=== PATIENT | male | born 1975 | race Caucasian/White ===

== ENCOUNTER 2017-03-05 11:30 | Emergency (ER) | payer OTHER ==
[~2017-03-05] VITALS: Ht 185.4 cm; Wt 85.1 kg
[2017-03-05 11:34] VITALS: TEMP 36.4
[2017-03-05] MEDS ORDERED: SODIUM CHLORIDE 0.9% 1000ML 1,000 ML IV STA (11:45)
[2017-03-05] MEDS ORDERED: SODIUM CHLORIDE 0.9% 1000ML 1,000 ML IV SCH (11:45)
--- NOTE | 2017-03-05 11:55 | EMERGENCY ROOM VISIT NOTE ---
History Report prepared by Ivan: German Oshea Under the Supervision of: Dr. Antonio Sinha M.D. First contact with patient: 11:39 Chief Complaint: STROKE SYMPTOMS Stated Complaint: STOKE SYMPTOMS,LOST FUNCTION ON R SIDE History of Present Illness The patient is a 41 year old male who presents to the Emergency Room with his friend for stroke-like symptoms. The patient's friend notes that he went to visit with the patient at 1100, 30 minutes ago and noticed that he was not behaving appropriately. He was standing in the kitchen, and was not responding correctly. He was shuffling his feet to walk, and holding his right arm in an unusual position. Upon presentation to the ED the patient is exhibiting expressive aphasia, and has weakness on the right side. The patient is unable to express the last time he felt normal. The friend has not seen him recently until this morning. After acquiring more HPI it was decided that the patient was last known well this morning at 0937, roughly two hours before arrival to the hospital. This was based on patient's who is [id number] at this time confirming that the patient sent her text messages this morning exhibiting ability to read and respond to written text normally. Source of History: patient Onset: Unknown last time known well Position: other (Neuro) Quality: other (Stoke Sx) Note: Facial droop, aphasia Review of Systems See HPI for pertinent positives and negatives. A total of ten systems were reviewed and were otherwise negative. Past Medical & Surgical Medical Problems: (1) Chronic back pain Chronic back pain Social History Alcohol Use: none Marital Status: Housing Status: lives with family Physical Exam Vital Signs Date Time Temp Pulse Resp B/P (MAP) Pulse Ox O2 Delivery O2 Flow Rate FiO2 03/05/17 13:50 77 18 149/95 99 Room Air 03/05/17 13:35 66 16 153/93 99 Room Air 03/05/17 13:20 70 20 153/95 99 Room Air 03/05/17 13:05 69 13 160/95 99 Room Air 03/05/17 12:50 58 13 149/92 97 03/05/17 12:45 64 14 150/101 99 03/05/17 12:40 67 13 97 03/05/17 12:38 164/90 03/05/17 12:35 61 22 99 03/05/17 12:30 58 15 98 03/05/17 12:25 65 18 98 03/05/17 12:20 79 19 98 03/05/17 12:15 67 14 99 03/05/17 12:14 70 03/05/17 12:10 69 20 153/89 98 Room Air 03/05/17 12:09 99 Room Air 03/05/17 12:07 153/89 03/05/17 11:34 36.4 78 18 142/99 99 Room Air Physical Exam GENERAL: Awake, alert, well-appearing, in no distress. There is expressive aphasia and dysarthria. HENT: There is a right lower facial weakness. Normocephalic, atraumatic. Oropharynx unremarkable. EYES: Normal conjunctiva. Sclera non-icteric. NECK: Supple. No nuchal rigidity. FROM. No JVD. RESPIRATORY: Clear to auscultation. CARDIAC: Regular rate, normal rhythm. Extremities warm and well perfused. Pulses equal. ABDOMEN: Soft, non-distended. No tenderness to palpation. No rebound or guarding. No masses. RECTAL: Deferred. UPPER EXTREMITIES: There is drift present in the right upper extremity. MUSCULOSKELETAL: Chest examination reveals no tenderness. The back is symmetrical on inspection without obvious abnormality. There is no CVA tenderness to palpation. No joint edema. LOWER EXTREMITIES: There is 4/5 strength in the Right lower extremity. Calves are equal size bilaterally and non-tender. No edema. No discoloration. NEURO: Normal sensorium. No sensory or motor deficits noted. SKIN: No rash or jaundice noted. NIH Stroke scale of 8. Medical Decision & Procedures ER Provider Diagnostic Interpretation: Radiology results as stated below per my review and radiologist interpretation: CTA ANGIOGRAPHY OF THE HEAD CLINICAL HISTORY: Stroke. COMPARISON STUDY: No previous studies for comparison. TECHNIQUE: Helical axial images of the head were obtained following uneventful intravenous administration of 93 cc of Optiray 320. A dose lowering technique was utilized adhering to the principles of ALARA. FINDINGS: Note is made of abrupt occlusion of a branch of the left anterior cerebral artery shown best on axial image 510 of 626. There is also suspected abrupt occlusion of a small left anterior branch shown on axial image 480 706 126. There is no large central thrombus. Posterior circulation appears intact. No acute intracranial hemorrhage, midline shift or mass effect is present. No intracranial aneurysm or dissection is identified. An anterior communicating artery is present. IMPRESSION: 1. Abrupt occlusion of a branch of the left anterior cerebral artery likely due to thrombus, as shown on unenhanced head CT. Findings discussed with Dr. Sinha at time of dictation. 2. Possible abrupt occlusion of a small sylvian branch of the left middle cerebral artery. Electronically signed by: Matt Santana M.D. 03/05/2017 12:26 PM Dictated Date/Time: 03/05/2017 12:[address] ANGIOGRAPHY OF THE NECK WITH CONTRAST CLINICAL HISTORY: Stroke symptoms. COMPARISON STUDY: No previous studies for comparison. Technique: CT angiography of the carotid and vertebral arteries was obtained using [employer] 320 IV and 3D reconstruction on an independent workstation. NASCET criteria was utilized. A dose lowering technique was utilized adhering to the principles of ALARA. CT DOSE: 1210.07 mGy.cm Findings: Lung apices are clear. There is no cervical lymphadenopathy. No suspicious osseous lesions are present. There is no significant stenosis within the bilateral internal carotid, common carotid or vertebral arteries. There is no dissection within the major vasculature of the neck. IMPRESSION: No abnormality in carotid and vertebral vessels on contrast enhanced CT angiogram. Electronically signed by: Matt Santana M.D. 03/05/2017 12:18 PM Dictated Date/Time: 03/05/2017 12:11 PM CHEST ONE VIEW PORTABLE CLINICAL HISTORY: Stroke COMPARISON STUDY: No previous studies for comparison. FINDINGS: Lung volumes are normal. Lungs are clear. No pneumothorax or pleural effusion is noted. Cardiac size is normal. Mediastinal contours are normal. There is no evidence of pulmonary edema. IMPRESSION: No acute cardiopulmonary findings. Electronically signed by: Matt Santana M.D. 03/05/2017 12:18 PM Dictated Date/Time: 03/05/2017 12:[address] OF THE HEAD WITHOUT CONTRAST CLINICAL HISTORY: Stroke symptoms. Lost function on right side. COMPARISON STUDY: No previous studies for comparison. TECHNIQUE: Helical axial images of the head were obtained without IV contrast. Automated exposure control was utilized for the study. A dose lowering technique was utilized adhering to the principles of ALARA. FINDINGS: No acute intracranial hemorrhage, midline shift or mass effect is present. Ventricular system is normal. Basilar cisterns are patent. There are no extra-axial collections. There is linear hyperdensity within a suspected branch of the left anterior cerebral artery shown best on axial image 17 of 32. There are no significant calvarial abnormalities. Visualized portions of the sinuses and mastoid air cells are clear. IMPRESSION: 1. No acute intracranial hemorrhage or mass effect. 2. Linear hyperdensity within a suspected branch of the left anterior cerebral artery which may reflect thrombus given the clinical history. This could be correlated with clinical evidence for an acute infarct within the left anterior cerebral artery distribution. Electronically signed by: Matt Santana M.D. 03/05/2017 12:11 PM Dictated Date/Time: 03/05/2017 12:03 PM Laboratory Results 03/05/17 11:42 Red Blood Count 5.05, Mean Corpuscular Volume 94.5, Mean Corpuscular Hemoglobin 33.3, Mean Corpuscular Hemoglobin Concent 35.2, Mean Platelet Volume 10.1, Neutrophils (%) (Auto) 78.5, Lymphocytes (%) (Auto) 14.1, Monocytes (%) (Auto) 5.8, Eosinophils (%) (Auto) 1.0, Basophils (%) (Auto) 0.3, Neutrophils # (Auto) 6.00, Lymphocytes # (Auto) 1.08, Monocytes # (Auto) 0.44, Eosinophils # (Auto) 0.08, Basophils # (Auto) 0.02 03/05/17 11:42 Test 03/05/17 11:42 03/05/17 11:44 03/05/17 11:45 03/05/17 12:18 White Blood Count 7.64 K/uL (4.8-10.8) Red Blood Count 5.05 M/uL (4.7-6.1) Hemoglobin 16.8 g/dL (14.0-18.0) Hematocrit 47.7 % (42-52) Mean Corpuscular Volume 94.5 fL (80-100) Mean Corpuscular Hemoglobin 33.3 pg (25-34) Mean Corpuscular Hemoglobin Concent 35.2 g/dl (32-36) Platelet Count 245 K/uL (130-400) Mean Platelet Volume 10.1 fL (7.4-10.4) Neutrophils (%) (Auto) 78.5 % Lymphocytes (%) (Auto) 14.1 % Monocytes (%) (Auto) 5.8 % Eosinophils (%) (Auto) 1.0 % Basophils (%) (Auto) 0.3 % Neutrophils # (Auto) 6.00 K/uL (1.4-6.5) Lymphocytes # (Auto) 1.08 K/uL (1.2-3.4) Monocytes # (Auto) 0.44 K/uL (0.11-0.59) Eosinophils # (Auto) 0.08 K/uL (0-0.5) Basophils # (Auto) 0.02 K/uL (0-0.2) RDW Standard Deviation 42.4 fL (36.4-46.3) RDW Coefficient of Variation 12.4 % (11.5-14.5) Immature Granulocyte % (Auto) 0.3 % Immature Granulocyte # (Auto) 0.02 K/uL (0.00-0.02) Prothrombin Time 10.9 SECONDS (9.0-12.0) Prothromb Time International Ratio 1.0 (0.9-1.1) Activated Partial Thromboplast Time 25.2 SECONDS (21.0-31.0) Partial Thromboplastin Ratio 1.0 Est Creatinine Clear Calc Drug Dose 100.0 ml/min Estimated GFR () 95.8 Estimated GFR (Non- 82.6 BUN/Creatinine Ratio 11.9 (10-20) Calcium Level 9.6 mg/dl (8.5-10.1) Magnesium Level 2.1 mg/dl (1.8-2.4) Total Creatine Kinase 221 U/L (39-308) Creatine Kinase MB 3.6 ng/ml (0.5-3.6) Creatine Kinase MB Ratio 1.6 (0-3.0) Troponin I < 0.015 ng/ml (0-0.045) Bedside Glucose 93 mg/dl (70-99) Bedside Hemoglobin 17.0 g/dl (14.0-18.0) Bedside Hematocrit 50 % (42-52) Bedside Sodium 143 mEq/L (135-144) Bedside Potassium 4.1 mEq/L (3.3-5.0) Bedside Chloride 101 mEq/L (101-112) Bedside Total CO2 29 mEq/l (24-31) Anion Gap 18.0 mmol/L (16-25) Bedside Blood Urea Nitrogen 15 mg/dl (7-18) Bedside Creatinine 1.1 mg/dl (0.6-1.3) Bedside Glucose (other) 105 mg/dl (70-99) Bedside Ionized Calcium (Caitlyn) 1.15 mmol/l (1.12-1.32) Bedside Prothrombin Time INR 1.1 (0.9-1.1) Laboratory results reviewed by me Medications Administered Medications (Trade) Dose Ordered Sig/Erica Route Start Time Stop Time Status Last Admin Dose Admin Sodium Chloride 1,000 ml @ 50 mls/hr Q20H IV 03/05/17 11:45 03/05/17 14:19 DC 03/05/17 11:45 50 MLS/HR Sodium Chloride 1,000 ml @ 999 mls/hr Q1H1M STAT IV 03/05/17 11:45 03/05/17 12:45 DC 03/05/17 12:23 999 MLS/HR Alteplase, Recombinant 68.4 mg/Empty Bag 68.4 ml @ 68.4 mls/hr TODAY@1230 IV 03/05/17 12:30 03/05/17 13:29 DC 03/05/17 12:40 68.4 MLS/HR Alteplase, Recombinant 7.6 mg/Syringe 7.6 ml @ 7.6 mls/min TODAY@1230 IV 03/05/17 12:30 03/05/17 12:31 DC 03/05/17 12:40 7.6 MLS/MIN ECG Indication: altered mental status (stroke) Rate (beats per minute): 54 Rhythm: sinus bradycardia Findings: RBBB (incomplete), no acute ischemic change Change: Patient's electrocardiogram interpreted by me. ED Course 1139: The patient was evaluated in room B1. A complete history and physical exam was performed. 1145: Ordered Sodium Chloride 1000 mL @ 999 mL/hr IV, Sodium Chloride 1000 mL @ 50 mL/hr IV. 1217: I Discussed the case with Dr. Germain - [facility]. He agrees with administering TPA. TPA will be mixed and given. 1230: Alteplase, Recombinant 7.6 mg 7.6 mL @ 7.6 mL/min IV. 1231: Consult was made with Hanna as we are trying to get the Telestroke program to operate. 1321: I discussed the case with Dr. Germain again. He states we should transfer the patient to the [facility] Emergency Department. We do not need to speak with an ED physician. Medical Decision I reviewed the patient's past medical history, medications, and the nursing notes as described above. Differential diagnosis: Etiologies such as cerebral vascular accident, intracerebral event, metabolic, infection, hypo/hyperglycemia, electrolyte abnormalities, cardiac sources, toxicologic, neurologic, as well as others were entertained. The patient is a 41-year-old gentleman who presents emergency Department with stroke symptoms including dysarthria and expressive aphasia right sided weakness of the lower face, right upper extremity weakness and right lower extremity weakness initially with unclear last known well given the limitations in communication secondary to the patient's aphasia. The patient was found by a friend this morning who noticed the patient's altered status and brought the patient in for evaluation. On arrival the patient has clear dysarthria and aphasia unable to answer questions. He has right kenia-facial paresis of the lower face. He has right upper extremity pronator drift and 4/5 strength in the right lower extremity. NIH Stroke Scale of 8. Stroke alert activated. CT head negative for bleed. CTA of the head and neck demonstrates left ZAINA thrombus as well as a likely occlusion of small sylvian branch of left MCA. In the interim, additional collateral was obtained and the patient was apparently texting with his normally at approximately 937 this morning. Moreover, when patient is reading text he is able to point to a written option that indicates he woke up normal this morning. Thus, the time of 9:37 AM used as the LKW. Case was discussed with Dr. Germain, [facility] neurologist, who determined no contraindications for tpa. Given the patient's elevated NIH score in the setting of confirmed thrombus on CT patient meets criteria for TPA and thus was administered with patient consent. Subsequently, the patient demonstrated improvement in his speech able to answer most questions with mild dysarthria and aphasia. I discussed further with and we agree for plan for transfer by air to the ED as telestroke transfer with plan for possible Neuro IR evaluation.. Patient and family consenting for transfer. Consults Time Called: 1210 Consulting Physician: Dr. Jessa Ferreira Neurology Returned Call: 1217 I Discussed the case with Dr. Jessa Ferreira Neurology. He agrees with administering TPA. TPA will be mixed and given. Impression Primary Impression: Stroke Critical Care I have personally spent greater than 120 minutes of critical care time in the direct management of this patient. This includes bedside care, interpretation of diagnostic studies, and testing, discussion with consultants, patient, and family members, and other required patient management activities. This 120 minutes is in excess of all separately billable procedures. Scribe Attestation The scribe's documentation has been prepared under my direction and personally reviewed by me in its entirety. I confirm that the note above accurately reflects all work, treatment, procedures, and medical decision making performed by me. Departure Information Dispostion Transfer Acute Care Facility ([facility] ED) Referrals No Doctor, Assigned (PCP) Patient Instructions My [facility] Stroke History Time Last Known Well 09 this morning Stroke t-PA Criteria Reviewed Meets criteria for t-PA Reason t-PA Not Given Treatment provided - N/A
[2017-03-05 11:56] LABS: BASO % 0.3 %; BASO ABS # 0.02 K/uL (0-0.2); EOS ABS # 0.08 K/uL (0-0.5); HEMATOCRIT 47.7 % (42-52); HEMOGLOBIN 16.8 g/dL (14.0-18.0); IG# 0.02 K/uL (0.00-0.02); LYMPH % 14.1 %; LYMPH ABS # 1.08 K/uL (1.2-3.4); MEAN CELL VOLUME 94.5 fL (80-100); MEAN CORPUSCULAR HEMOGLOBIN 33.3 pg (25-34); MEAN CORPUSCULAR HGB CONC 35.2 g/dl (32-36); MEAN PLATELET VOLUME 10.1 fL (7.4-10.4); MONO % 5.8 %; MONO ABS # 0.44 K/uL (0.11-0.59); NEUT % 78.5 %; PLATELET COUNT 245 K/uL (130-400); RED CELL DISTRIBUTION WIDTH CV 12.4 % (11.5-14.5); RED CELL DISTRIBUTION WIDTH SD 42.4 fL (36.4-46.3); WHITE BLOOD COUNT 7.64 K/uL (4.8-10.8)
[2017-03-05 11:57] LABS: ISTAT CREATININE 1.1 mg/dl (0.6-1.3); ISTAT IONIZED CALCIUM 1.15 mmol/l (1.12-1.32); ISTAT POTASSIUM 4.1 mEq/L (3.3-5.0)
[2017-03-05 12:06] LABS: PTT PATIENT 25.2 SECONDS (21.0-31.0)
[2017-03-05 12:08] VITALS: Ht 185.4 cm; Wt 85.1 kg
[2017-03-05 12:09] VITALS: O2SAT 99
[2017-03-05 12:12] LABS: BLOOD UREA NITROGEN 13 mg/dl (7-18); CALCIUM 9.6 mg/dl (8.5-10.1); CARBON DIOXIDE 27 mmol/L (21-32); CREATININE 1.11 mg/dl (0.60-1.40); GLUCOSE 103 mg/dl (70-99); POTASSIUM 4.1 mmol/L (3.5-5.1); SODIUM 139 mmol/L (136-145)
--- NOTE | 2017-03-05 12:12 | DIAGNOSTIC IMAGING REPORT ---
CT OF THE HEAD WITHOUT CONTRAST CLINICAL HISTORY: Stroke symptoms. Lost function on right side. COMPARISON STUDY: No previous studies for comparison. TECHNIQUE: Helical axial images of the head were obtained without IV contrast. Automated exposure control was utilized for the study. A dose lowering technique was utilized adhering to the principles of ALARA. FINDINGS: No acute intracranial hemorrhage, midline shift or mass effect is present. Ventricular system is normal. Basilar cisterns are patent. There are no extra-axial collections. There is linear hyperdensity within a suspected branch of the left anterior cerebral artery shown best on axial image 17 of 32. There are no significant calvarial abnormalities. Visualized portions of the sinuses and mastoid air cells are clear. IMPRESSION: 1. No acute intracranial hemorrhage or mass effect. 2. Linear hyperdensity within a suspected branch of the left anterior cerebral artery which may reflect thrombus given the clinical history. This could be correlated with clinical evidence for an acute infarct within the left anterior cerebral artery distribution. Electronically signed by: Matt Santana M.D. 03/05/2017 12:11 PM Dictated Date/Time: 03/05/2017 12:03 PM
[2017-03-05] MEDS ORDERED: OPTIRAY 320 IV PRN (12:15)
[2017-03-05 12:17] LABS: CKMB 3.6 ng/ml (0.5-3.6)
--- NOTE | 2017-03-05 12:19 | DIAGNOSTIC IMAGING REPORT ---
CT ANGIOGRAPHY OF THE NECK WITH CONTRAST CLINICAL HISTORY: Stroke symptoms. COMPARISON STUDY: No previous studies for comparison. Technique: CT angiography of the carotid and vertebral arteries was obtained using [employer] 320 IV and 3D reconstruction on an independent workstation. NASCET criteria was utilized. A dose lowering technique was utilized adhering to the principles of ALARA. CT DOSE: 1210.07 mGy.cm Findings: Lung apices are clear. There is no cervical lymphadenopathy. No suspicious osseous lesions are present. There is no significant stenosis within the bilateral internal carotid, common carotid or vertebral arteries. There is no dissection within the major vasculature of the neck. IMPRESSION: No abnormality in carotid and vertebral vessels on contrast enhanced CT angiogram. Electronically signed by: Matt Santana M.D. 03/05/2017 12:18 PM Dictated Date/Time: 03/05/2017 12:11 PM
--- NOTE | 2017-03-05 12:20 | DIAGNOSTIC IMAGING REPORT ---
CHEST ONE VIEW PORTABLE CLINICAL HISTORY: Stroke COMPARISON STUDY: No previous studies for comparison. FINDINGS: Lung volumes are normal. Lungs are clear. No pneumothorax or pleural effusion is noted. Cardiac size is normal. Mediastinal contours are normal. There is no evidence of pulmonary edema. IMPRESSION: No acute cardiopulmonary findings. Electronically signed by: Matt Santana M.D. 03/05/2017 12:18 PM Dictated Date/Time: 03/05/2017 12:18 PM
[2017-03-05] MEDS ORDERED: RECOMBINANT IV STA ×2 (12:23)
[2017-03-05] MEDS ORDERED: ALTEPLASE IV STA ×2 (12:23)
--- NOTE | 2017-03-05 12:27 | DIAGNOSTIC IMAGING REPORT ---
CTA ANGIOGRAPHY OF THE HEAD CLINICAL HISTORY: Stroke. COMPARISON STUDY: No previous studies for comparison. TECHNIQUE: Helical axial images of the head were obtained following uneventful intravenous administration of 93 cc of Optiray 320. A dose lowering technique was utilized adhering to the principles of ALARA. FINDINGS: Note is made of abrupt occlusion of a branch of the left anterior cerebral artery shown best on axial image 510 of 626. There is also suspected abrupt occlusion of a small left anterior branch shown on axial image 480 706 126. There is no large central thrombus. Posterior circulation appears intact. No acute intracranial hemorrhage, midline shift or mass effect is present. No intracranial aneurysm or dissection is identified. An anterior communicating artery is present. IMPRESSION: 1. Abrupt occlusion of a branch of the left anterior cerebral artery likely due to thrombus, as shown on unenhanced head CT. Findings discussed with Dr. Sinha at time of dictation. 2. Possible abrupt occlusion of a small sylvian branch of the left middle cerebral artery. Electronically signed by: Matt Santana M.D. 03/05/2017 12:26 PM Dictated Date/Time: 03/05/2017 12:18 PM
[2017-03-05] MEDS ORDERED: SET 2260-0500 IV ONE (12:30)
[2017-03-05] MEDS ORDERED: RECOMBINANT IV SCH ×2 (12:30)
[2017-03-05] MEDS ORDERED: ALTEPLASE IV SCH ×2 (12:30)
[2017-03-05] MEDS ORDERED: PHARMACIST DISCHARGE MED REC CONSULT PRN (12:30)
[2017-03-05 13:50] VITALS: BP 149/95; PULSE 77; O2SAT 99
== END 2017-03-05 14:00 | disposition short-term general hospital (02) ==
LOC: C.EDB 11:32
DX: I63.322 Cerebral infarction due to thrombosis of left anterior cerebral artery (principal); R29.708 NIHSS score 8; M54.9 Dorsalgia, unspecified; G89.29 Other chronic pain; R47.1 Dysarthria and anarthria; R00.1 Bradycardia, unspecified; I45.10 Unspecified right bundle-branch block

== ENCOUNTER → 2017-05-05 | Day surgery (SDC) | payer OTHER ==
[2017-05-05] VITALS (7 sets, daily range): BP systolic 84–150; BP diastolic 63–90; PULSE 52–75; O2SAT 95–100; Ht 190.5 cm; Wt 85.0 kg
[~2017-05-05] VITALS: Ht 190.5 cm; Wt 85.0 kg
[~2017-05-05] MED LIST: ASPI81TA28 PO; CITA10TA4 PO; CYAN10005 PO; FOLI1TAB8 PO; GABA-113 PO; LIDOCAINE HCL 2% 2 ML VIAL (20MG/ML) ONE; PROPOFOL IV EMULSION 10 MG/ML 20 ML VIAL IV ONE
--- NOTE | 2017-05-05 08:03 | Cardiology Procedure Brief Nt ---
Preliminary Cardiology Note Procedure Date May 05, 2017. 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
--- NOTE | 2017-05-05 08:06 | Discharge Instructions ---
Discharge Instructions Procedure Procedure Date: May 05, 2017. Reason for Visit: PFO. Discharge Discharge Date: May 05, 2017. Discharge Diagnosis: Small PFO with hypermobile Intraatrial septum Last Recorded Wt (Kilograms): 85 Anesthesia Post Anesthesia Instructions: If you have had IV Sedation: * Do not drive today. * Do not make important decisions or sign legal documents today. * Call surgeon for: 1. Temperature elevations greater than 101 degrees F. 2. Uncontrollable pain. 3. Excessive bleeding. 4. Persistent nausea and vomiting. * For nausea and vomiting use only clear liquids such as: tea, soda, bouillon until nausea subsides, then gradually increase diet as tolerated. * If you have any concerns or questions, call your physician's office. If physician is unavailable and it is an emergency, call 911 or go to the nearest emergency room. Instructions Activity Recommendations: limitations Recommended Home Diet: resume previous diet Follow Up ACTIVITY RECOMMENDATIONS: Resume activities as tolerated with no limitations unless specified. _X_ Do not engage in vigorous exercise, sexual activity, or sports for 24 hours. _X_ Do not drive or operate any motorized equipment for 24 hours. _X_ You may return to work/school tomorrow. X__ Nothing to eat or drink until gag reflex returns.--approx 2 hours then cold liquids and if tolerated advance diet--- X__ No HOT or WARM liquids for _43_ hours. X__ Avoid "scratchy" foods such as potato chips or pretzels for 24 hours following procedure. SPECIAL CARE: If you experience coughing up or vomiting of blood, contact Dr Gonzalez Your Doctors Instructions noted above were prepared by provider Santiago Gonzalez. Patient Signature Section: Patient Instructions Signature Page Javibret Kaur Patient (or Guardian) Signature/Date: I have read and understand the instructions given to me by my caregivers. Caregiver/RN/Doctor Signature/Date: The above-named patient and/or guardian has received patient instructions on this date. + Original Patient Signature Page (only) stays with chart. Please make copy for patient.
--- NOTE | 2017-05-05 08:30 | Anesthesiology Progress Note ---
Anesthesia Post Op Note Date & Time May 05, 2017 at 08:30 Vital Signs Vital Signs Past 12 Hours Date Time Temp Pulse Resp B/P (MAP) Pulse Ox O2 Delivery O2 Flow Rate FiO2 05/05/17 08:15 64 16 101/67 (78) 96 Room Air 05/05/17 08:05 70 16 105/63 (77) 95 Room Air 05/05/17 08:00 71 18 105/63 96 Nasal Cannula 2 05/05/17 07:55 60 18 84/68 100 Nasal Cannula 6 05/05/17 07:50 60 18 110/69 100 Nasal Cannula 6 05/05/17 07:45 60 18 107/73 100 Nasal Cannula 6 05/05/17 07:40 60 18 123/82 100 Nasal Cannula 6 05/05/17 07:35 75 18 150/90 100 Nasal Cannula 6 Notes Mental Status: alert / awake / arousable, participated in evaluation Pt Amnestic to Procedure: Yes Nausea / Vomiting: adequately controlled Pain: adequately controlled Airway Patency, RR, SpO2: stable & adequate BP & HR: stable & adequate Hydration State: stable & adequate Anesthetic Complications: no major complications apparent
--- NOTE | 2017-05-05 08:36 | TEE ---
*NOTICE TO RECEIVING LIBERTARIAN AGENCY This information is strictly Confidential and protected under [place] law. [place] law prohibits you from making any further disclosure of this information unless further disclosure is expressly permitted by the written consent of the person to whom it pertains or is authorized by law. A general authorization for the release of medical or other information is not sufficient for this purpose. Hospital accepts no responsibility if the information is made available to any other person, INCLUDING THE PATIENT. Interpretation Summary * Name: [facility] Study Date: 05/05/2017 07:32 AM BP: 105/63 mmHg * Patient Location: [facility] HR: 62 * : 1975 (M/d/yyyy) Gender: Male Height: 75 in * Age: 41 yrs Ethnicity: CA Weight: 185 lb * Ordering Physician: Danilo iBngham MD * Performed By: Holli Thrasher RDCS * * Reason For Study: Patient [place] * BSA: 2.1 m2 * -- Conclusions -- * The left ventricle is normal in size. * There is normal left ventricular wall thickness. * The left ventricular wall motion is normal. * Left ventricular systolic function is normal. * Ejection Fraction = 60-65%. * The right ventricle is normal in size and function. * The left atrial size is normal. * No evidence of LA/CHRISTINA thrombus. * Right atrial size is normal. * There is an atrial septal aneurysm along with a small PFO by bubble study. * The patient was well sedated and could not cough adequately. Bubbles did cross spontaneously and with pressing on his abdomen. * Normal aortic root and proximal ascending aorta and descending aorta.' * The arch was not well seen. Procedure Details * The transesophageal portion of this study was personally supervised by the undersigned interpreting physician. * Surya probe #3 utilized for the procedure. Start time: 07:35 End time: 07:57 Medication: 40 Lidocaine 330 mg Propofol. * The study was performed in Cardiac Catheterization Lab. * Time out was conducted by the physician, nurse, and transport technician with positive identification of patient and procedure. * Informed consent for Transesophageal Echocardiogram was obtained prior to the procedure. * An intravenous line was placed. A topical anesthetic agent was used for oropharangeal anesthesia. A bite block was inserted. * Sedation performed by the anesthesia department. * The patient's vital signs, including blood pressure, heart rate, pulse oximetry and cardiac rhythm were monitored throughout the procedure . * The posterior oropharynx was anesthetized using a topical anesthetic spray. A bite guard was inserted. * A multifrequency, multiplane transesopheageal echocardiographic endoscope was inserted and manipulated in the standard fashion to achieve multiplane views. * The transesophageal probe was passed without difficulty. * The usual views were obtained; basal, mid-esophageal, transgastric and aortic views. * The patient tolerated the procedure well without evidence of orophangeal or esophageal trauma. * A 2D transesophageal echocardiogram with spectral and color flow Doppler was performed. * Contrast injection with agitated saline was performed. * A 2D transesophageal echocardiogram with Doppler and color flow Doppler was performed. Left Ventricle * The left ventricle is normal in size. * There is normal left ventricular wall thickness. * Left ventricular systolic function is normal. * Ejection Fraction = 60-65%. * The left ventricular wall motion is normal. Right Ventricle * The right ventricle is normal in size and function. Atria * The left atrial size is normal. * No evidence of LA/CHRISTINA thrombus. * Right atrial size is normal. * There is an atrial septal aneurysm along with a small PFO by bubble study. The patient was well sedated and could not cough adequately. Bubbles did cross spontaneously and with pressing on his abdomen. Mitral Valve * The mitral valve is grossly normal. * There is trace mitral regurgitation. Tricuspid Valve * The tricuspid valve is not well visualized, but is grossly normal. * There is trace tricuspid regurgitation. Aortic Valve * The aortic valve is tricuspid. The leaflet thickness if normal. There is no aortic stenosis, and no significant insufficiency. Pulmonic Valve * The pulmonic valve is not well seen, but is grossly normal. * Trace pulmonic valvular regurgitation. Great Vessels * Normal aortic root and proximal ascending aorta and descending aorta.' The arch was not well seen. Pericardium * There is no pericardial effusion.
--- NOTE | 2017-05-05 13:20 | History & Physical Bridge Note ---
H&P Re-Evaluation Bridge Note: I have examined the patient, reviewed the History & Physical and in the interval since the performance of the History & Physical I have noted the following changes of clinical significance: No changes noted
== END | disposition home or self-care (01) ==
LOC: C.CATH 06:38
PROVIDERS: ATTEND Internal Medicine Cardiovascular Disease
DX: Q21.1 Atrial septal defect (principal); Z79.899 Other long term (current) drug therapy; Z79.82 Long term (current) use of aspirin; Z87.891 Personal history of nicotine dependence